=== PATIENT | male | born 2000 | race Caucasian/White ===

== ENCOUNTER 2019-12-01 11:21 | Day surgery (SDC) | payer OTHER ==
[~2019-12-01] VITALS: Ht 175.3 cm; Wt 79.8 kg
[~2019-12-01 11:21] MED LIST: NS 1,000 ML IV ONE
[2019-12-01] MEDS ORDERED: fentaNYL 100 MCG/2 ML INJECTION (J3010) As Ordered ONE (12:28)
[2019-12-01] MEDS ORDERED: LIDOCAINE 2% 100MG/5ML SDV (FOR ANES.) As Ordered ONE (12:29)
[2019-12-01] MEDS ORDERED: propofoL 200 MG/20 ML VIAL As Ordered ONE (12:56)
--- NOTE | 2019-12-01 13:37 | ROOR ---
Patient Name: Yovani Miles Procedure Date: 12/01/2019 1:17 PM Date of : 2000 Age: 19 Room: [facility] Gender: Male Note Status: Finalized Procedure: Upper GI endoscopy + Balloon Dilatation Indications: Heartburn, Abnormal UGI series, Suspected achalasia, Exclusion of achalasia Providers: Yfn Puentes MD Referring MD: VINNY BERNAL MD Requesting Provider: Medicines: Monitored Anesthesia Care Complications: No immediate complications. Procedure: Pre-Anesthesia Assessment: - The heart rate, respiratory rate, oxygen saturations, blood pressure, adequacy of pulmonary ventilation, and response to care were monitored throughout the procedure. The Endoscope was introduced through the mouth, and advanced to the second part of duodenum. The upper GI endoscopy was accomplished without difficulty. The patient tolerated the procedure well. Findings: The Z-line was regular and was found 40 cm from the incisors. The lumen of the esophagus was moderately dilated. A TTS dilator was passed through the scope. Dilation with an 18-19-20 mm balloon dilator was performed to 20 mm at the gastroesophageal junction. No other significant abnormalities were identified in a careful examination of the stomach. The exam of the duodenum was otherwise normal. Impression: - Z-line regular, 40 cm from the incisors. - Dilation in the entire esophagus. - Dilation performed at the gastroesophageal junction. - No specimens collected. - The examination was otherwise normal. Recommendation: - Patient has a contact number available for emergencies. The signs and symptoms of potential delayed complications were discussed with the patient. Return to normal activities tomorrow. Written discharge instructions were provided to the patient. - [place] thick liquids diet. - Discharge patient to home. - Follow an antireflux regimen. - Continue present medications. - Return to referring physician. - The findings and recommendations were discussed with the patient. Yfn Puentes MD Yfn Puentes MD 12/01/2019 1:37:22 PM Electronically signed by Yfn Puentes MD Number of Addenda: 0 Note Initiated On: 12/01/2019 1:17 PM Estimated Blood Loss: Estimated blood loss: none.
[2019-12-01 13:50] VITALS: BP 121/57
== END 2019-12-01 14:05 | disposition home or self-care (01) ==
LOC: M OPP 11:21
PROVIDERS: ATTEND Internal Medicine Gastroenterology
DX: R13.10 Dysphagia, unspecified (principal); R93.89 Abnormal findings on diagnostic imaging of other specified body structures; R63.4 Abnormal weight loss; Z87.891 Personal history of nicotine dependence
CPT/HCPCS: 43220; J3010